=== PATIENT | female | born 1950 | race Caucasian/White ===

== ENCOUNTER 2017-02-06 14:14 | Emergency (ER) | payer MEDICARE ==
[~2017-02-06] VITALS: Ht 152.4 cm; Wt 70.0 kg
[2017-02-06 14:16] VITALS: BP 123/79; PULSE 94; RESP 16; TEMP 98.9; O2SAT 98
[2017-02-06] MEDS ORDERED: METF500T PO (14:45)
[2017-02-06] MEDS ORDERED: CITA10TA4 PO (14:45)
[2017-02-06] MEDS ORDERED: LORA1TAB12 PO ×2 (14:47→15:16)
--- NOTE | 2017-02-06 15:16 | PD ---
HPI Chief Complaint: Anxiety Time Seen by Provider: 14:38 Travel History International Travel<30 days: No Contact w/Intl Traveler<30days: No Traveled to known affect area: No History of Present Illness HPI 66-year-old female arrives complaining of anxiety and insomnia. She is visiting from [place] with friends. She normally has Ativan however has none with her. No suicidal or homicidal ideation. Timing constant. Location neuropsychiatric. PFSH Past Medical History Anxiety: Yes Diabetes: Yes Patient Takes Glucophage: Yes Hypertension: Yes Integumentary: Yes ?: Not Past Surgical History Surgical History: No Previous Surgery Social History Alcohol Use: Yes Tobacco Use: No Substance Use: No Allergies-Medications (Allergen,Severity, Reaction): Coded Allergies: NSAIDS (Non-Steroidal Anti-Inflamma (Verified Allergy, Unknown, 02/06/17) aspirin (Verified Allergy, Unknown, 02/06/17) Reported Meds & Prescriptions Reported Meds & Active Scripts Active Lorazepam 1 Mg Tab 1 Mg PO DAILY PRN Reported Citalopram (Citalopram Hydrobromide) 10 Mg Tab 10 Mg PO DAILY Metformin (Metformin HCl) 500 Mg Tab 500 Mg PO DAILY With a meal Review of Systems Respiratory: No: Shortness of Breath Gastrointestinal: No: Nausea Genitourinary: No: Dysuria Physical Exam Narrative GENERAL: 66 yo F, NAD, pleasant SKIN: Warm and dry. HEAD: Normocephalic. EYES: No scleral icterus. No injection or drainage. NECK: Supple, trachea midline. No JVD or lymphadenopathy. CARDIOVASCULAR: Regular rate and rhythm without murmurs, gallops, or rubs. RESPIRATORY: Breath sounds equal bilaterally. No accessory muscle use. GASTROINTESTINAL: Abdomen soft, non-tender, nondistended. MUSCULOSKELETAL: No cyanosis, or edema. BACK: Nontender without obvious deformity. No CVA tenderness. Data Data Last Documented VS Vital Signs Date Time Temp Pulse Resp B/P (MAP) Pulse Ox O2 Delivery O2 Flow Rate FiO2 02/06/17 15:26 02/06/17 14:16 98.9 94 16 98 Room Air Orders Orders Ed Discharge Order (02/06/17 15:16) [facility] [place] Medical Decision Making Medical Screen Exam Complete: Yes Emergency Medical Condition: Yes Medical Record Reviewed: Yes Differential Diagnosis anxiety, insomnia, hypomania Narrative Course Vital Signs Date Time Temp Pulse Resp B/P (MAP) Pulse Ox O2 Delivery O2 Flow Rate FiO2 02/06/17 15:26 02/06/17 14:16 98.9 94 16 123/79 (94) 98 Room Air Script as below. Diagnosis Primary Impression: Insomnia Qualified Codes: G47.00 - Insomnia, unspecified Additional Impression: Medication refill Med/Other Pt SpecificInfo: Prescription(s) given Scripts Lorazepam (Lorazepam) 1 Mg Tab 1 MG PO DAILY Y for ANXIETY, #20 TAB 0 Refills Prov: Himanshu Miranad MD 02/06/17 Disposition: 01 DISCHARGE HOME Condition: Stable Himanshu Miranda MD Feb 06, 2017 15:16
== END 2017-02-06 15:36 | disposition home or self-care (01) ==
LOC: NEPD 14:14
DX: Z76.0 Encounter for issue of repeat prescription (principal); G47.00 Insomnia, unspecified; F41.9 Anxiety disorder, unspecified; E11.9 Type 2 diabetes mellitus without complications; I10 Essential (primary) hypertension; Z79.899 Other long term (current) drug therapy; Z88.6 Allergy status to analgesic agent
CPT/HCPCS: 99283